=== PATIENT | female | born 1975 | race Caucasian/White ===

== ENCOUNTER 2020-10-14 11:00 | Emergency (ER) | payer OTHER ==
[~2020-10-14] VITALS: Ht 160 cm; Wt 81.6 kg
--- NOTE | 2020-10-14 11:37 | ED Upper Extremity ---
General Chief Complaint: Upper Extremity Stated Complaint: SMASHED FINGERS R HAND Source: patient Exam Limitations: no limitations (NIKITA LOUIE APRN) History of Present Illness Date Seen by Provider: Oct 14, 2020 Time Seen by Provider: 11:37 Initial Comments Smashed the right pinky finger between a container full of soil and a concrete pillar while at work at [employer] in [place]. The finger was initially deformed and very painful though the deformity seems to have subsided she states. Onset: just prior to arrival Severity: moderate Pain/Injury Location: right 5th finger Method of Injury: unknown Modifying Factors: Worse With Movement (NIKITA LOUIE APRN) Allergies and Home Medications Allergies Coded Allergies: No Known Drug Allergies (Verified Allergy, Intermediate, 07/22/07) Adhesive (Verified Allergy, Unknown, 07/22/07) Uncoded Allergies: BANDAIDS (Allergy, Unknown, 07/21/07) PLASTIC TAPE (Allergy, Unknown, 07/21/07) Patient Home Medication List Home Medication List Reviewed: Yes (NIKITA LOUIE APRN) Review of Systems Constitutional: see HPI EENTM: see HPI Respiratory: no symptoms reported Cardiovascular: no symptoms reported Genitourinary: no symptoms reported Musculoskeletal: see HPI Skin: no symptoms reported Psychiatric/Neurological: No Symptoms Reported (NIKITA LOUIE APRN) Physical Exam Vital Signs Vital Signs - First Documented 10/14/20 11:19 Temp 37.0 Pulse 78 Resp 20 B/P (MAP) 113/75 (88) Pulse Ox 98 (KORY HOLMAN MD) Vital Signs Capillary Refill : (NIKITA LOUIE APRN) Height, Weight, BMI Height: '" Weight: lbs. oz. kg; BMI Method: General Appearance: WD/WN, no apparent distress HEENT: PERRL/EOMI, normal ENT inspection Respiratory: normal breath sounds, no respiratory distress, no accessory muscle use Shoulder: normal inspection, non-tender Elbow/Forearm: normal inspection, non-tender Wrist: Yes normal inspection, Yes non-tender Hand: Right (Ecchymosis to the distal tip of the finger, very small ecchymosis to the radial side distal tip beneath the nail, not a drainable subungual hematoma) Neurologic/Tendon: normal sensation, normal motor functions, normal tendon functions Neurologic/Psychiatric: alert, normal mood/affect, oriented x 3 Skin: normal color (NIKITA LOUIE APRN) Progress/Results/Core Measures Results/Orders My Orders Orders - KORY HOLMAN MD Finger(S) (10/14/20 11:16) (KORY HOLMAN MD) Departure Impression Primary Impression: Contusion of finger Disposition: HOME, SELF-CARE Condition: Stable Departure-Patient Inst. Decision time for Depature: 11:37 (NIKITA LOUIE APRN) Referrals: GUERDA RUDOLPH MD (PCP/Family) Primary Care Physician Patient Instructions: Common Finger Injuries Add. Discharge Instructions: 1. Ice pack to the area. Elevate the finger. Tylenol and ibuprofen for pain control. Return to ER for any worsening. All discharge instructions reviewed with patient and/or family. Voiced understanding. ATTENDING PHYSICIAN NOTE: I was physically present as attending physician in the emergency department d uring the care of this patient, but I was not directly involved in the decision making or delivery of care for this patient. (KORY HOLMAN MD) NIKITA LOUIE APRN Oct 14, 2020 11:37 KORY HOLMAN MD Oct 15, 2020 06:18
[2020-10-14 12:00] VITALS: BP 113/75
--- NOTE | 2020-10-14 12:02 | Diagnostic Imaging Report ---
Indication: Right hand injury, pain. Comparison: None Findings: 3 views of the right hand 5th digit demonstrate no fracture or dislocation. Articular surfaces are normal. No foreign body. Impression: No fracture or dislocation. Dictated by: Dictated on workstation # [id number]
== END 2020-10-14 11:56 | disposition home or self-care (01) ==
LOC: EDUNIT# 11:00 → ER 11:04
DX: S60.051A Contusion of right little finger without damage to nail, initial encounter (principal); W23.0XXA Caught, crushed, jammed, or pinched between moving objects, initial encounter; Y99.0 Civilian activity done for income or pay
CPT/HCPCS: 29130; 73140